=== PATIENT | male | born 1965 | race Caucasian/White ===

== ENCOUNTER 2020-02-08 20:01 | Emergency (ER) | payer OTHER ==
[~2020-02-08] VITALS: Ht 175.3 cm; Wt 68.0 kg
[2020-02-08] MEDS ORDERED: DICLOFENAC SODI75 MG PO (21:34)
[2020-02-08] MEDS ORDERED: VISTARIL25 MG PO (21:42)
== END 2020-02-08 21:53 | disposition home or self-care (01) ==
LOC: ER 20:01
DX: S43.085A Other dislocation of left shoulder joint, initial encounter (principal); W17.89XA Other fall from one level to another, initial encounter; Y93.89 Activity, other specified; Y92.018 Other place in single-family (private) house as the place of occurrence of the external cause; Y99.8 Other external cause status

== ENCOUNTER 2021-03-12 16:06 | Emergency (ER) | payer OTHER ==
[~2021-03-12] VITALS: Ht 175.3 cm; Wt 68.0 kg
[~2021-03-12 16:06] MED LIST: DICLOFENAC SODI75 MG PO; VISTARIL25 MG PO
[2021-03-12] MEDS ORDERED: NASAL MIST126 ML (21:56)
== END 2021-03-12 21:58 | disposition home or self-care (01) ==
LOC: ER 16:06
DX: R07.89 Other chest pain (principal)

== ENCOUNTER 2021-05-04 07:38 | Emergency (ER) | payer OTHER ==
[~2021-05-04] VITALS: Ht 175.3 cm; Wt 68.5 kg
[~2021-05-04 07:38] MED LIST changes: +NASAL MIST126 ML
== END 2021-05-04 14:25 | disposition home or self-care (01) ==
LOC: ER 07:38
DX: R10.32 Left lower quadrant pain (principal)

== ENCOUNTER 2024-01-12 17:09 | Emergency (ER) | payer OTHER ==
[~2024-01-12] VITALS: Ht 170.2 cm; Wt 77.1 kg
[2024-01-12] MEDS ORDERED: CIPROFLOXACIN500 MG PO (17:41)
== END 2024-01-12 19:45 | disposition home or self-care (01) ==
LOC: ER 17:10
DX: L08.9 Local infection of the skin and subcutaneous tissue, unspecified (principal)